=== PATIENT | male | born 1935 | race Caucasian/White ===

== ENCOUNTER 2018-09-03 11:12 | Emergency (ER) | payer MEDICARE ==
[2013-09-17 10:52] VITALS: Wt 98.9 kg
[~2018-09-03 11:12] MED LIST: AMLO-127 PO; ASPI-870 PO; BENA40TA53 PO; ISOS5TAB PO; LOR5/325 PO; OMEP-218 PO; PRAV20TA66 PO
--- NOTE | 2018-09-03 11:22 | ER Report ---
History and Physical Time Seen By MD: 11:18 Hx. of Stated Complaint: CHEST PAIN, SOB THAT STARTED LAST NIGHT. PACEMAKER REPLACED 2 WEEKS AGO. ARRIVED FROM [place] 4 DAYS AGO HPI/ROS CHIEF COMPLAINT: Chest pain HISTORY OF PRESENT ILLNESS: 82-year-old male patient presents to emergency room with complaint of chest pain. Patient states that he started having chest pressure last night. He states he is having a difficult time breathing. He states that every fifth or 6 breath to take he thought he is taking a deep breath. Patient states that he got up and moved into a chair last night. While he was in the recliner he had pressure across his chest. He states that he did get up and walk around the seem to help. He states that this morning he did eat some hot tea and cookies. He states that he had no pain after that. He denies any nausea, vomiting or diarrhea. Patient states he is not taking any medication for this. Patient is visiting from [place], typically he spends the summer of pain in [place] visiting his daughter. REVIEW OF SYSTEMS: Respiratory: No cough, no dyspnea. Cardiovascular: As noted above Gastrointestinal: No vomiting, no abdominal pain. Musculoskeletal: No back pain. Allergies: Coded Allergies: No Known Drug Allergies (Unverified , 09/03/18) Home Meds Reported Medications Ezetimibe (ZETIA) 10 Mg Tablet, 10 MG PO QDAY, TAB 09/03/18 Isosorbide Dinitrate (ISOSORBIDE DINITRATE) 5 Mg Tablet, 5 MG PO BID 09/16/13 Omeprazole Magnesium (PRILOSEC OTC) 20 Mg Tablet.dr, 1 TAB PO QDAY TAKE ONE TABLET BY MOUTH ONCE A DAY 09/16/13 Aspirin (Children's Aspirin) 81 Mg Tab.chew, 81 MG PO DAILY 09/16/13 Benazepril Hcl (BENAZEPRIL HCL) 40 Mg Tablet, 40 MG PO QDAY, TAB TAKE 1 TABLET BY MOUTH EVERY DAY 09/16/13 Amlodipine Besylate (AMLODIPINE BESYLATE) 10 Mg Tablet, 1 TAB PO QDAY, TAB TAKE ONE TABLET BY MOUTH EVERY DAY 09/16/13 Pravastatin Sodium (PRAVASTATIN SODIUM) 20 Mg Tablet, 20 MG PO QDAY 09/16/13 Discontinued Scripts Hydrocodone Bit/Acetaminophen (HYDROCODON-ACETAMINOPHEN 5-325) 1 Each Tablet, 1- 2 EACH PO Q4-6H for PAIN, #30 Prov:JOSE G PETERSEN MD 09/17/13 Past Medical/Surgical History Patient has a past medical history of hypertension, hyperlipidemia, cholecystectomy, hiatal hernia, kidney disease, hearing aids. Patient has surgical history of pacemaker, cholecystectomy. Reviewed Nurses Notes: Yes Hx Smoking: No Smoking Status: Never Smoker Hx Substance Use Disorder: No Hx Alcohol Use: Yes Constitutional Vital Sign - Last 24 Hours 09/03/18 09/03/18 09/03/18 09/03/18 11:12 11:13 11:16 11:27 Temp 97.6 Pulse ??? 62 61 Resp 14 21 B/P (MAP) 176/82 (113) 176/82 Pulse Ox 93 92 O2 Delivery Room Air 09/03/18 09/03/18 09/03/18 09/03/18 11:30 11:42 11:57 12:00 Pulse 61 61 Resp 15 B/P (MAP) 147/75 (99) 117/76 (90) Pulse Ox 89 91 09/03/18 09/03/18 09/03/18 12:12 12:27 12:34 Pulse 60 60 67 Resp 0 16 16 Pulse Ox 90 90 94 Physical Exam General Appearance: The patient is alert, has no immediate need for airway protection and no current signs of toxicity. Respiratory: Chest is non tender, lungs are clear to auscultation. Cardiac: regular rate and rhythm Gastrointestinal: Abdomen is soft and non tender, no masses, bowel sounds normal. Musculoskeletal: Neck: Neck is supple and non tender. Extremities have full range of motion and are non tender. Skin: No rashes or lesions. DIFFERENTIAL DIAGNOSIS: After history and physical exam differential diagnosis was considered for chest pain including but not limited to myocardial ischemia, pericarditis pulmonary embolus, chest wall pain, pleural inflammation and pulmonary infectious causes. Medical Decision Making Data Points Result Diagram: 09/03/18 1119 09/03/18 1119 Laboratory Hematology Test 09/03/18 11:19 White Blood Count 7.4 k/uL (4.5-11.0) Red Blood Count 5.02 M/uL (4.00-5.60) Hemoglobin 16.5 g/dL (14.0-18.0) Hematocrit 47.0 % (42.0-52.0) Mean Corpuscular Volume 93.6 fL (80.0-96.0) Mean Corpuscular Hemoglobin 32.9 pg (26.0-33.0) Mean Corpuscular Hemoglobin Concent 35.2 g/dL (32.0-36.0) Red Cell Distribution Width 12.6 % (11.5-14.5) Platelet Count 207 K/uL (150-450) Mean Platelet Volume 8.1 fL (7.2-11.1) Neutrophils (%) (Auto) 58.8 % (39.4-72.5) Lymphocytes (%) (Auto) 32.9 % (17.6-49.6) Monocytes (%) (Auto) 5.5 % (4.1-12.4) Eosinophils (%) (Auto) 2.0 % (0.4-6.7) Basophils (%) (Auto) 0.8 % (0.3-1.4) Nucleated RBC Relative Count (auto) 0.1 /100WBC Neutrophils # (Auto) 4.3 K/uL (2.0-7.4) Lymphocytes # (Auto) 2.4 K/uL (1.3-3.6) Monocytes # (Auto) 0.4 K/uL (0.3-1.0) Eosinophils # (Auto) 0.1 K/uL (0.0-0.5) Basophils # (Auto) 0.1 K/uL (0.0-0.1) Nucleated RBC Absolute Count (auto) 0.01 K/uL Chemistry Test 09/03/18 11:19 Sodium Level 140 mmol/L (137-145) Potassium Level 4.2 mmol/L (3.5-5.0) Chloride Level 104 mmol/L (98-107) Carbon Dioxide Level 20 mmol/L (22-30) Blood Urea Nitrogen 22 mg/dl (9-21) Creatinine 1.20 mg/dl (0.66-1.25) Glomerular Filtration Rate Calc 57.8 Random Glucose 156 mg/dl (75-110) Calcium Level 9.7 mg/dl (8.4-10.2) Total Bilirubin 0.6 mg/dl (0.2-1.3) Aspartate Amino Transf (AST/SGOT) 47 U/L (0-35) Alanine Aminotransferase (ALT/SGPT) 65 U/L (0-56) Alkaline Phosphatase 41 U/L (0-126) Troponin I < 0.012 ng/ml B-Type Natriuretic Peptide 66 pg/ml (0-100) Total Protein 7.8 g/dl (6.3-8.2) Albumin 4.7 g/dl (3.5-5.0) Coagulation Test 09/03/18 11:19 Prothrombin Time 13.2 seconds (12.0-14.4) Prothromb Time International Ratio 1.00 Activated Partial Thromboplast Time 31 seconds (23-35) EKG/Imaging EKG Interpretation 12 lead EKG: Rhythm: Sinus pressure cardiac with the dissociation Rembert: Left axis deviation QRS: Wide QRS complex ST segments: normal Imaging Technique: CHEST PA LAT HISTORY: Chest Pain Comparison studies: 09/16/2013 FINDINGS: The lungs are clear. No pleural effusion or pneumothorax. Chest wall pacer, leads as well as cardiac silhouette are unchanged. IMPRESSION: 1. No acute cardiopulmonary process. Report Dictated By: Dae Mcginnis DO at 09/03/2018 12:01 PM Report E-Signed By: Dae Mcginnis DO at 09/03/2018 12:02 PM ED Course/Re-evaluation ED Course Patient was admitted to examine, history of physical or obtained. Differential diagnoses were considered. On examination lungs are clear, heart is regular, abdomen was soft nontender. Patient states she's feeling afebrile this point time. He denies having any shortness of breath. Patient was satting 92-94% on room air. With complaint of chest pressure last night a EKG, troponin, CBC, CMP, chest x-ray were done. The lab results were unremarkable, the troponin was undetectable. I discussed the findings with the patient and his daughter. Patient states he feels well this time. Was wondering about possibly doing some oxygen as needed for shortness of breath. We did get him up and walked him around the unit. At that point time he maintained his oxygen saturation saturations of 94%. We will go ahead and discharge patient home at this time. He is follow-up with his regular care provider when he returns to [place]. He is return to emergency room if condition worsens. Patient and daughter verbalized understanding and agreement with plan. His mother that this patient likely is having some high-altitude sickness secondary to coming to [place] from [place]. Decision to Disposition Date: Sep 03, 2018 Decision to Disposition Time: 12:27 Depart Departure Latest Vital Signs Vital Signs Date Time Temp Pulse Resp B/P (MAP) Pulse Ox O2 Delivery O2 Flow Rate FiO2 09/03/18 12:34 67 16 94 09/03/18 12:00 117/76 (90) 09/03/18 11:16 97.6 Room Air Impression: Primary Impression: Chest pain Additional Impression: High altitude periodic breathing Condition: Improved Disposition: HOME OR SELF-CARE Patient Instructions: Chest Pain (ED) Additional Instructions: Increase fluid intake. Get plenty of rest. It will take you several weeks to adjust to the altitude, make sure to include some rest periods. Return to the ER if condition worsens. Problem Qualifiers Primary Impression: Chest pain Chest pain type: other chest pain Qualified Codes: R07.89 - Other chest pain SADAF LARSEN Sep 03, 2018 11:22
[2018-09-03] MEDS ORDERED: ASPIRIN 81 MG CHEW PO ONE (11:35)
[2018-09-03 11:42] LABS: PLATELET COUNT, AUTOMATED 207 K/uL (150-450)
[2018-09-03 12:00] VITALS: BP 117/76
--- NOTE | 2018-09-03 12:12 | RADIOLOGY IMAGING REPORT ---
FACILITY: [facility] PATIENT NAME: Nemesio Saavedra : 1935 MR: [id number] V: [id number] EXAM DATE: ORDERING PHYSICIAN: SADAF LARSEN TECHNOLOGIST: Location: [facility] - [place] Patient: Nemesio Saavedra : 1935 Visit/Account:[id number] Date of Sevice: 09/03/2018 Technique: CHEST PA LAT HISTORY: Chest Pain Comparison studies: 09/16/2013 FINDINGS: The lungs are clear. No pleural effusion or pneumothorax. Chest wall pacer, leads as well as cardiac silhouette are unchanged. IMPRESSION: 1. No acute cardiopulmonary process. Report Dictated By: Dae Mcginnis DO at 09/03/2018 12:01 PM Report E-Signed By: Dae Mcginnis DO at 09/03/2018 12:02 PM [id number]
--- NOTE | 2018-09-03 12:28 | EKG ---
[place] [facility] [place] NAME: REBECCA LOZOYA : [id number] MR: [id number] V: [id number] EXAM DATE: ORDERING PHYSICIAN: SADAF LARSEN TECHNOLOGIST: PAM Mir Reason : CARDIAC Blood Pressure : / mmHG Vent. Rate : 063 BPM Atrial Rate : 057 BPM P-R Int : 000 ms QRS Dur : 168 ms QT Int : 462 ms P-R-T Axes : 000 -88 080 degrees QTc Int : 472 ms Electronic ventricular pacemaker rate approximately 60bpm Abnormal ECG Confirmed by PATI SMITH ([id number] on 09/03/2018 12:58:42 PM Referred By: Confirmed By:PATI SMITH
[2018-09-03] MEDS ORDERED: EZET10TA41 PO (12:46)
== END 2018-09-03 12:35 | disposition home or self-care (01) ==
LOC: ER 11:28
DX: G47.32 High altitude periodic breathing (principal); R07.89 Other chest pain; E78.5 Hyperlipidemia, unspecified; I10 Essential (primary) hypertension; Z79.82 Long term (current) use of aspirin; Z79.899 Other long term (current) drug therapy; Z95.0 Presence of cardiac pacemaker
CPT/HCPCS: 71046; 83880; 84484; 85025; 85610; 85730; 93005; 99284; A9270; 82040; 82247; 82310; 82374; 82435; 82565; 82947; 84075; 84132; 84155; 84295; 84450; 84460; 84520